=== PATIENT | male | born 1940 | race Two or more races ===

== ENCOUNTER 2019-09-02 17:42 | Inpatient (IN) | payer MEDICARE ==
[~2019-09-02] VITALS: Ht 162.6 cm; Wt 72.1 kg
--- NOTE | 2019-09-02 18:20 | NUR ---
Dr Nieves at the bedside for MSE.
--- NOTE | 2019-09-02 19:01 | NUR ---
Dinner sndwitch provided, pt ate w/ great appetite.
--- NOTE | 2019-09-02 19:25 | NUR ---
Assumed care for patient at this time. On 5150 for DTO and GD. Patient is alert and verbally responsive. No episodes of agitation/aggression towards staff. Calm and cooperative at this time. All vital signs are stable. Side rails up x 2. Closely monitored for safety.
--- NOTE | 2019-09-02 20:34 | NUR ---
Report given to Psych Nurse Frida.
[2019-09-02] MEDS ORDERED: MAG HYDROX/AL HYDROX/SIMETH 30 ML LIQUID UDC PO PRN (20:45)
[2019-09-02] MEDS ORDERED: MAGNESIUM HYDROXIDE 30 ML LIQUID UDC PO PRN (20:45)
[2019-09-02] MEDS ORDERED: LORAZEPAM 0.5 MG TABLET PO PRN (20:45)
[2019-09-02 21:00] VITALS: BP 141/63
--- NOTE | 2019-09-02 22:00 | NUR ---
78 YRS OLD WHITE MALE WAS ADMITTED TO [facility] AFTER MEDICAL CLEARED FROM ER.HE ARRIVED VIA GURNEY ACCOMPANIED BY ER STAFF.ANXIOUS,RESTLESS,SUSPICIOUS A ND SL.PARANOID UPON APPROACH.HE WAS ADMITTED @ [facility] FOR 3 DAYS BEFORE TRANSFERRED HERE FOR BIPOLAR D/O.HE IS ON 72 HR HOLD FOR DTS/GD-HE WAS AGITATED AND AGGRESSIVE TOWARD @ HOMEHE WAS ABLE TO SIGN ALMOST ALL OF ADMIT PAPERS AND PROVIDED HIS INFORMATIONS BUT FORGETFUL @ TIMES AND EASILY IRRITABLE WHEN REDIRECTED.AMBULATORY WITH SL.UNSTEADY ON HIS FEET-HX.OF MULTIPLE FALLS.HX.OF TIA,HTN,BIPOLAR,SCHIZOPHRENIA,PERIPHERAL AUTONOMIC NEURPATHY.SKIN CHECKED-MULTIPLE BRUISES ON LEFT ARM AND BOTH FEET ARE SWOLLEN LEFT MORE THAN RIGHT.WITH REDNESS NOTED ON RED FOOT.DENIES LEONIDES /SI/HI/A&V H.WILL CONTINUE TO MONITOR.
[2019-09-03 07:30] VITALS: BP 140/68
[2019-09-03] MEDS: LAMOTRIGINE 100 MG TABLET PO SCH ×2 (10:41→20:33)
[2019-09-03] MEDS ORDERED: OLANZAPINE 2.5 MG TABLET PO PRN (10:45)
--- NOTE | 2019-09-03 13:18 | NUR ---
Social Work Individual Therapy: dining service worker met with patient for brief counseling for presenting problem. Patient's presenting problem is that patient presents with manic mood. This technical publications writer attempted to help patient problem-solve his manic mood. Patient is uncooperative and kept stating to this technical publications writer "you should cut your hair" and becomes easily agitated. dining service worker will continue to follow-up.
--- NOTE | 2019-09-03 15:09 | NUR ---
Social Work Initial Discharge Plan: Patient currently resides with Stephy ([phone]) at [address] [place] [address]; ([phone]). This typewriter aligner spoke with and stated that upon discharge she would want patient back home. This typewriter aligner and discussed home health services upon discharge. welfare eligibility worker will work with the pt and the MD regarding appropriate discharge planning. welfare eligibility worker will form a safe and proper discharge plan.
--- NOTE | 2019-09-03 15:10 | NUR ---
Social Work Family Contact: forming process line worker spoke with patient's Stephy ([phone]) and discussed treatment plan and discharge plan. Per Stephy, she would want patient back home with home health services. Stephy, will send this director underwriter sales DPOA documentation and this director underwriter sales will place it in the charge. Per Stephy, she is the DPOA.
[2019-09-03 16:00] VITALS: BP 129/65
[2019-09-03] MEDS ORDERED: DOXAZOSIN MESYLATE PO SCH (17:00)
[2019-09-03] MEDS: DOXAZOSIN 2 MG TABLET PO SCH (17:25)
[2019-09-03] MEDS: ACETAMINOPHEN 325 MG TABLET PO PRN (17:26)
--- NOTE | 2019-09-03 18:55 | NUR ---
patient is alert, oriented x3, no sob, resp even nonlabored,skin warm and dry to touch, patient noted with pacing back and forth in the hallway, cooperative with meds, kept safe, patient denied suicidal thoughts, continue to monitor
[2019-09-03 20:00] VITALS: BP 144/61
[2019-09-03] MEDS ORDERED: OLANZAPINE 2.5 MG TABLET PO SCH (20:00)
[2019-09-03] MEDS: ATORVASTATIN 40 MG TABLET PO SCH (20:33)
--- NOTE | 2019-09-03 22:00 | NUR ---
received to care, highly visible on unit, pleasant upon approach. interacts well with male peers. compliant with medications, and staff direction. no aggressive behaviors noted. as of 2200, he remains awake. no distress noted. will continue to monitor closely.
[2019-09-03] MEDS: TEMAZEPAM 7.5 MG CAPSULE PO PRN (23:07)
--- NOTE | 2019-09-03 23:07 | NUR ---
PRN restoril, given, for insomnia.
--- NOTE | 2019-09-04 | NUR ---
appears to be asleep. no distress noted. will continue to monitor closely.
--- NOTE | 2019-09-04 06:00 | NUR ---
slept 2.5 hours, total. was awake at 0230, restless, declining to take PRN for anxiety. he went back to bed at 0430. as of now, he remains asleep. no distress noted.
[2019-09-04 08:00] VITALS: BP 133/63
[2019-09-04] MEDS: LAMOTRIGINE 100 MG TABLET PO SCH ×2 (08:17→20:24)
[2019-09-04] MEDS: ASPIRIN 81 MG TAB.CHEW PO SCH (08:17)
[2019-09-04] MEDS: AMLODIPINE 5 MG TABLET PO SCH (08:17)
[2019-09-04] MEDS: OXYBUTYNIN XL 5 MG TABSR PO SCH (08:18)
[2019-09-04] MEDS: FINASTERIDE 5 MG TABLET PO SCH (08:18)
[2019-09-04] MEDS: DOXAZOSIN 2 MG TABLET PO SCH ×2 (08:19→17:12)
[2019-09-04] MEDS: HYDROCHLOROTHIAZIDE 25 MG TABLET PO SCH (08:19)
[2019-09-04] MEDS ORDERED: Medication Not On Formulary EA (Mirabegron (Myrbetriq) 50 MG) PO SCH (09:00)
[2019-09-04] MEDS ORDERED: Medication Not On Formulary EA (Atorvastatin Calcium (Lipitor) 1 TAB) PO SCH (09:00)
[2019-09-04] MEDS: ACETAMINOPHEN 325 MG TABLET PO PRN ×2 (09:42→20:24)
[2019-09-04 16:00] VITALS: BP 127/62
[2019-09-04] MEDS: OLANZAPINE 2.5 MG TABLET PO SCH (20:24)
[2019-09-04] MEDS: ATORVASTATIN 40 MG TABLET PO SCH (20:24)
[2019-09-04 20:38] VITALS: BP 126/65
--- NOTE | 2019-09-04 22:00 | NUR ---
received to care, pleasant upon approach. compliant with medications, and staff direction. no aggressive behaviors noted. as of 2200, he remains awake. no distress noted. will continue to monitor closely.
[2019-09-04] MEDS: TEMAZEPAM 7.5 MG CAPSULE PO PRN (23:12)
--- NOTE | 2019-09-04 23:12 | NUR ---
PRN restoril, given for insomnia.
--- NOTE | 2019-09-04 23:40 | NUR ---
appears to be asleep. no distress noted.
--- NOTE | 2019-09-05 06:00 | NUR ---
slept 8 hours, total. continues to sleep. no distress noted.
[2019-09-05 07:30] VITALS: BP 117/64
[2019-09-05] MEDS: OXYBUTYNIN XL 5 MG TABSR PO SCH (08:13)
[2019-09-05] MEDS: DOXAZOSIN 2 MG TABLET PO SCH ×2 (08:13→16:45)
[2019-09-05] MEDS: HYDROCHLOROTHIAZIDE 25 MG TABLET PO SCH (08:14)
[2019-09-05] MEDS: AMLODIPINE 5 MG TABLET PO SCH (08:14)
[2019-09-05] MEDS: FINASTERIDE 5 MG TABLET PO SCH (08:14)
[2019-09-05] MEDS: ASPIRIN 81 MG TAB.CHEW PO SCH (08:14)
[2019-09-05] MEDS: LAMOTRIGINE 100 MG TABLET PO SCH ×2 (08:14→21:15)
--- NOTE | 2019-09-05 09:16 | NUR ---
Social Work PC Hearing Notification: grove worker contacted patient's Stephy, ([phone]) and notified patients probable cause of hearing today.
--- NOTE | 2019-09-05 09:39 | NUR ---
Social Work Note: During hearing, patient stated to this fha underwriter that this fha underwriter "betrayed the patient and that she was not on his side". This fha underwriter and the disciplinary hearing officer informed that this fha underwriter is basing it off of the nursing and doctor notes. Patient has been refusing to speak to this fha underwriter.
--- NOTE | 2019-09-05 11:05 | NUR ---
Received patient this am in the day room. After initial introduction patient began joking and making inappropriate comments to the nurse. Then patient went from laughing to being angry and irritable almost right away. Patients is very argumentative at times and labile. Some manic features noted also. Will continue to monitor for aggression and behavior escalation. Medication compliant so far. No acute distress noted at this time. Devops made aware of patients A1C being 7 today.
--- NOTE | 2019-09-05 12:17 | NUR ---
Social Work Family Contact: sort worker spoke with patient's Stephy ([phone]) who stated that she wants patient back home upon discharge. She stated that she has been for him for 50 years and this marriage will continue on. Per Stephy, she will pick patient up at 1PM on 09/09/2019.
--- NOTE | 2019-09-05 13:19 | NUR ---
Social Work Individual Therapy: mastic worker met with patient for brief counseling for presenting problem. Patient's presenting problem is that patient presents with manic mood. This teletypewriter operator attempted to help patient problem-solve his manic mood. Patient does not want to speak to this teletypewriter operator because he stated that "this teletypewriter operator is not on his side". Patient is fixated on leaving home and is not being cooperative with this teletypewriter operator. mastic worker will follow-up.
--- NOTE | 2019-09-05 14:25 | NUR ---
Social Work Note: dairy farmworker met with patient to discuss if he would want home health service upon discharge. Patient stated that "no" he does not need home health services and that he is "perfectly capable of taking care of himself". Patient's Stephy ([phone]) is also involved in patient's care.
--- NOTE | 2019-09-05 14:34 | NUR ---
Social Work Firearms Report: Account Officer completed and submitted a [employer] firearms report for 5250 grave disability certification. A copy of report has been placed in patient chart.
--- NOTE | 2019-09-05 14:40 | NUR ---
Social Work Substance Abuse Intervention: Patient was provided with a brief substance abuse intervention and referred to [facility] ([phone]), [facility] ([phone]), and [facility] ([phone]).
[2019-09-05 15:55] VITALS: BP 118/68
[2019-09-05] MEDS: ACETAMINOPHEN 325 MG TABLET PO PRN ×2 (16:50→23:54)
--- NOTE | 2019-09-05 19:45 | NUR ---
RECEIVED PT AWAKE, ALERT AND ORIENTEDX4. PT IN NO ACUTE DISTRESS. PLEASANT WHEN APPROACHED. NO SIGNS OF AGITATION. WILL CONTINUE TO MONITOR.
[2019-09-05] MEDS: OLANZAPINE 2.5 MG TABLET PO SCH (20:00)
[2019-09-05 20:22] VITALS: BP 134/58
[2019-09-05] MEDS: ATORVASTATIN 40 MG TABLET PO SCH (21:16)
--- NOTE | 2019-09-06 06:34 | NUR ---
PT SLEPT 6.30 H. PT COOPERATIVE WITH CARE. PT GIVEN TYLENOL PRN AT 2354H FOR PAIN.PRESCRIBED MEDICATION GIVEN AND PT TOLERATED IT WELL. NO AGITATION NOTED. SAFETY AND COMFORT PROVIDED. WILL ENDORSE TO INCOMING NURSE FOR CONTINUITY OF CARE.
[2019-09-06 07:30] LABS: BASOPHILS % (AUTO) 0.4 % (0.0-2.0); EOSINOPHILS # (AUTO) 0.1 K/uL (0.0-0.7); HEMATOCRIT 24.8 % (36.7-47.1); HEMOGLOBIN 8.6 g/dL (12.5-16.3); LYMPHOCYTES # (AUTO) 1.2 K/uL (20.0-40.0); LYMPHOCYTES % (AUTO) 17.9 % (20.5-51.5); MEAN CORPUSCULAR HEMOGLOBIN 31.4 uug (23.8-33.4); MEAN CORPUSCULAR HGB CONC 35 g/dL (32.5-36.3); MONOCYTES # (AUTO) 1.7 K/uL (2.0-10.0); MONOCYTES % (AUTO) 26.8 % (0.0-11.0); NEUTROPHILS # (AUTO) 3.4 K/uL (1.8-8.9); NEUTROPHILS % (AUTO) 52.9 % (38.5-71.5); PLATELET COUNT (AUTO) 173 K/uL (152-348); RED BLOOD CELL COUNT(AUTO) 2.73 MIL/uL (4.06-5.63); WHITE BLOOD COUNT (AUTO) 6.5 K/uL (3.6-10.2)
[2019-09-06 07:36] LABS: CARBON DIOXIDE 31 mmol/L (21-32); CHLORIDE 104 mmol/L (98-107); CREATININE 1.4 mg/dL (0.6-1.3); GLUCOSE 99 mg/dL (74-106); MAGNESIUM 2.2 mg/dL (1.8-2.4); PHOSPHOROUS 4.2 mg/dL (2.5-4.9); UREA NITROGEN, BLOOD 27 mg/dL (7-18)
[2019-09-06 07:49] VITALS: BP 149/57
[2019-09-06] MEDS: OXYBUTYNIN XL 5 MG TABSR PO SCH (08:06)
[2019-09-06] MEDS: DOXAZOSIN 2 MG TABLET PO SCH ×2 (08:06→17:01)
[2019-09-06] MEDS: ASPIRIN 81 MG TAB.CHEW PO SCH (08:06)
[2019-09-06] MEDS: LAMOTRIGINE 100 MG TABLET PO SCH ×2 (08:07→20:40)
[2019-09-06] MEDS: HYDROCHLOROTHIAZIDE 25 MG TABLET PO SCH (08:07)
[2019-09-06] MEDS: AMLODIPINE 5 MG TABLET PO SCH (08:08)
[2019-09-06] MEDS: FINASTERIDE 5 MG TABLET PO SCH (08:08)
--- NOTE | 2019-09-06 09:18 | NUR ---
Social Work Note: This report writer completed the writ for patient and had the patient sign. This report writer faxed it to [facility] ([phone]).
[2019-09-06 09:38] LABS: BAND % (MANUAL) 3 % (0-10); BASOPHILS % (MANUAL) 1 % (0-2); EOSINOPHILS % (MANUAL) 2 % (0-8); LYMPHOCYTES % (MANUAL) 12 % (20-40); MONOCYTES % (MANUAL) 22 % (2-10); NEUTROPHILS % (MANUAL) 60 % (42-75)
[2019-09-06] MEDS: FUROSEMIDE 40 MG TABLET PO SCH (10:48)
--- NOTE | 2019-09-06 10:59 | NUR ---
Received patient this am . Awake , alert and oriented. Some pedal edema noted. Splicer Helper aware and orders received for Lasix. VS are stable. Patient needy, with multiple requests for small things. Otherwise , no escalation of anger or aggression noted. Continuing to monitor for behavior escalation, and for safety. Patient is medication compliant at this time.
[2019-09-06] MEDS: ACETAMINOPHEN 325 MG TABLET PO PRN ×2 (14:42→20:44)
[2019-09-06 16:39] VITALS: BP 121/56
[2019-09-06 20:03] VITALS: BP 110/50
[2019-09-06] MEDS: OLANZAPINE 2.5 MG TABLET PO SCH (20:40)
[2019-09-06] MEDS: ATORVASTATIN 40 MG TABLET PO SCH (20:40)
--- NOTE | 2019-09-07 06:19 | NUR ---
Patient slept about a total of 5.30 hrs. last night.
[2019-09-07 07:30] VITALS: BP 119/63
[2019-09-07] MEDS: HYDROCHLOROTHIAZIDE 25 MG TABLET PO SCH (08:07)
[2019-09-07] MEDS: AMLODIPINE 5 MG TABLET PO SCH (08:08)
[2019-09-07] MEDS: ASPIRIN 81 MG TAB.CHEW PO SCH (08:08)
[2019-09-07] MEDS: FUROSEMIDE 40 MG TABLET PO SCH (08:08)
[2019-09-07] MEDS: OXYBUTYNIN XL 5 MG TABSR PO SCH (08:08)
[2019-09-07] MEDS: FINASTERIDE 5 MG TABLET PO SCH (08:08)
[2019-09-07] MEDS: LAMOTRIGINE 100 MG TABLET PO SCH ×2 (08:08→20:00)
[2019-09-07] MEDS: DOXAZOSIN 2 MG TABLET PO SCH ×2 (08:09→16:02)
[2019-09-07] MEDS: ACETAMINOPHEN 325 MG TABLET PO PRN ×2 (15:54→22:47)
[2019-09-07 16:29] VITALS: BP 125/49
[2019-09-07] MEDS: OLANZAPINE 2.5 MG TABLET PO SCH (19:59)
[2019-09-07] MEDS: ATORVASTATIN 40 MG TABLET PO SCH (20:00)
[2019-09-07 20:22] VITALS: BP 123/60
--- NOTE | 2019-09-08 06:18 | NUR ---
Patient slept about a total of 6.45 hours last night.
[2019-09-08 07:30] VITALS: BP 122/49
[2019-09-08] MEDS: ASPIRIN 81 MG TAB.CHEW PO SCH (08:18)
[2019-09-08] MEDS: OXYBUTYNIN XL 5 MG TABSR PO SCH (08:19)
[2019-09-08] MEDS: HYDROCHLOROTHIAZIDE 25 MG TABLET PO SCH (08:19)
[2019-09-08] MEDS: ACETAMINOPHEN 325 MG TABLET PO PRN ×2 (08:20→17:46)
[2019-09-08] MEDS: AMLODIPINE 5 MG TABLET PO SCH (08:20)
[2019-09-08] MEDS: FINASTERIDE 5 MG TABLET PO SCH (08:26)
[2019-09-08] MEDS: FUROSEMIDE 40 MG TABLET PO SCH (08:27)
[2019-09-08] MEDS: LAMOTRIGINE 100 MG TABLET PO SCH ×2 (08:27→21:01)
[2019-09-08] MEDS: DOXAZOSIN 2 MG TABLET PO SCH ×2 (08:28→16:51)
[2019-09-08 15:33] VITALS: BP 121/56
[2019-09-08] MEDS: OLANZAPINE 2.5 MG TABLET PO SCH (21:02)
[2019-09-08] MEDS: ATORVASTATIN 40 MG TABLET PO SCH (21:02)
[2019-09-08 21:51] VITALS: BP 111/55
--- NOTE | 2019-09-08 23:00 | NUR ---
received to care, pleasant upon approach. interacts well with male peers. compliant with medications, and staff direction. no aggressive behaviors noted. needy at times, assisted with a shower. as of 2299, he appears asleep. no distress noted. will continue to monitor closely.
--- NOTE | 2019-09-09 06:00 | NUR ---
slept 5.5 hours, total. continues to sleep. no distress noted.
[2019-09-09 07:30] VITALS: BP 125/58
--- NOTE | 2019-09-09 07:54 | NUR ---
Received patient awake and alert make needs known, kept clean and dry at all times. safety and comfort provided. will continue to monitor.
--- NOTE | 2019-09-09 08:10 | NUR ---
Social Work Discharge Note: Patient will be discharged back home [address], [place] [address]; ([phone]). Patients Stephy ([phone]) is aware and agreeable with discharge plan. Per Stephy, she will pick patient up at 1PM. Patient is aware and agreeable with discharge plans. Upon discharge, patient appear to be calm, cooperative and happy to be going home. Patient denies suicidal and homicidal ideation. Patient will follow up with Dr. Altamirano (acid blower) at [address] [facility] [address], [place] [address]; ([phone]) on September 10 at 9:30AM and will follow up with (psychiatrist) Dr. Andino at [address] [facility] [address], [place] [address]; ([phone]) on September 12 at 12PM and will discuss smoking cessation and address substance abuse dependency. Patient was provided with a brief substance abuse intervention and referred to [facility] , [facility] , and [facility] . Patient presents with euthymic and congruent mood.
[2019-09-09] MEDS: HYDROCHLOROTHIAZIDE 25 MG TABLET PO SCH (09:00)
[2019-09-09] MEDS: ASPIRIN 81 MG TAB.CHEW PO SCH (09:09)
[2019-09-09] MEDS: AMLODIPINE 5 MG TABLET PO SCH (09:09)
[2019-09-09] MEDS: FUROSEMIDE 40 MG TABLET PO SCH (09:10)
[2019-09-09] MEDS: LAMOTRIGINE 100 MG TABLET PO SCH (09:10)
[2019-09-09 09:14] VITALS: BP 125/38
[2019-09-09] MEDS: DOXAZOSIN 2 MG TABLET PO SCH (09:14)
[2019-09-09] MEDS: FINASTERIDE 5 MG TABLET PO SCH (09:14)
[2019-09-09] MEDS: OXYBUTYNIN XL 5 MG TABSR PO SCH (09:14)
--- NOTE | 2019-09-09 12:00 | NUR ---
patient refused pictures to be taken for discharge , only allowed to take picture of hand but refused pictures of the rest.
--- NOTE | 2019-09-09 13:00 | NUR ---
RECEIVED DISCHARGE ORDER TO HOME, VIA PRIVATE CAR WITH . DISCHARGE INSTRUCTION GIVEN AND MEDICATION PRESCRIPTION GIVEN AND VERBALIZED UNDERSTANDING. BELONGINGS ACCOUNTED FOR AND SIGNED, DENIES ANY SI/HI AT THIS TIME. QUESTIONS AND CONCERNS ADDRESSED. ESCORTED PATIENT VIA WHEELCHAIR OUT THE FACILITY.
== END 2019-09-09 13:36 | disposition home or self-care (01) | DRG 885 ==
LOC: ER 17:45 → GPS 20:37
PROVIDERS: ADMIT Psychiatry & Neurology Psychosomatic Medicine; ATTEND Hospitalist
DX: F25.0 Schizoaffective disorder, bipolar type (principal); N18.9 Chronic kidney disease, unspecified; Z91.14 Patient's other noncompliance with medication regimen; E78.5 Hyperlipidemia, unspecified; Z86.73 Personal history of transient ischemic attack (TIA), and cerebral infarction without residual deficits; M47.812 Spondylosis without myelopathy or radiculopathy, cervical region; E11.42 Type 2 diabetes mellitus with diabetic polyneuropathy; Z72.89 Other problems related to lifestyle; F12.90 Cannabis use, unspecified, uncomplicated; I12.9 Hypertensive chronic kidney disease with stage 1 through stage 4 chronic kidney disease, or unspecified chronic kidney disease; E11.22 Type 2 diabetes mellitus with diabetic chronic kidney disease; Z91.19 Patient's noncompliance with other medical treatment and regimen
CPT/HCPCS: 36415; 70030-TC; 71045; 83735; 84100; 85025; A4663